=== PATIENT | male | born 1990 | race African-American/Black ===

== ENCOUNTER 2018-08-07 14:55 | Emergency (ER) | payer MEDICAID ==
[~2018-08-07] VITALS: Ht 175.3 cm; Wt 96.0 kg
[2018-08-07 15:00] VITALS: BP 139/78
== END 2018-08-07 17:28 | disposition left against medical advice (07) ==
LOC: ER 15:00
DX: R07.89 Other chest pain (principal); Z53.21 Procedure and treatment not carried out due to patient leaving prior to being seen by health care provider
CPT/HCPCS: 93005

== ENCOUNTER 2021-02-13 14:03 | Emergency (ER) | payer MEDICAID, OTHER ==
[~2021-02-13] VITALS: Ht 175.3 cm; Wt 95.0 kg
[2021-02-13] MEDS ORDERED: IBUPROFEN 600MG TABLET PO STA (14:18)
[2021-02-13 14:56] VITALS: BP 169/62
[2021-02-13] MEDS ORDERED: ACETAMINOPHEN 325MG TABLET PO ONE (15:45)
[2021-02-13] MEDS ORDERED: IBUP-2029 MT (15:49)
== END 2021-02-13 16:05 ==
LOC: ER 14:03
DX: R07.9 Chest pain, unspecified (principal); J45.909 Unspecified asthma, uncomplicated
CPT/HCPCS: 71045; 93005; 99283